=== PATIENT | female | born 1950 | race American Indian/Alaskan Native ===

== ENCOUNTER 2017-03-26 17:11 | Emergency (ER) | payer SELFPAY ==
[2017-03-26 17:58] LABS: Basophils % (Auto) 0.7 % (0.0-1.8); Eosinophils % (Auto) 3.4 % (0.0-4.3); Hematocrit 37.8 % (30.3-42.9); Hemoglobin 12.4 gm/dl (10.1-14.3); Mean Corpuscular HGB Conc 33 % (30-34); Mean Corpuscular Hemoglobin 29 pg (28-32); Mean Corpuscular Volume 88 fl (79-97); Platelet Count 180 K/mm3 (140-440); Red Blood Count 4.29 M/mm3 (3.65-5.03); Red Cell Distribution Width 14.9 % (13.2-15.2); White Blood Count 6.3 K/mm3 (4.5-11.0)
[2017-03-26 18:00] LABS: Anion Gap 18 mmol/L; BUN/Creatinine Ratio 22.22; Blood Urea Nitrogen 20 mg/dL (7-17); Calcium 8.9 mg/dL (8.4-10.2); Carbon Dioxide 25 mmol/L (22-30); Glucose 91 mg/dL (65-100); Potassium 4.1 mmol/L (3.6-5.0); Sodium 140 mmol/L (137-145)
[2017-03-26] MEDS ORDERED: TORADOL IM ONE (20:31)
[2017-03-26] MEDS ORDERED: NORVASC PO ONE (20:31)
[2017-03-26] MEDS ORDERED: ULTRAM PO ONE (20:31)
--- NOTE | 2017-03-26 21:36 | Emergency Department Report ---
ED Extremity Problem HPI - General Chief complaint: Chest Pain Stated complaint: SHOULDER AND BACK PAIN Time Seen by Provider: 03/26/17 19:44 Source: patient Mode of arrival: Ambulatory Limitations: Language Barrier - History of Present Illness Initial comments: 67-year-old female with a past medical history of hypertension presents to the hospital complaining of bilateral shoulder pain 6 months and chest pain earlier today. Patient speaks Creole and her daughter is translating. Last 6 months she has had bilateral shoulder pain right greater than left. Pain is worse with palpation and movement extends up to her neck and upper back/ trapezius area. No injury reported. No fever. Patient does not have a primary care doctor has not seen anyone about this pain. Patient also mentioned to triage nurse that she has some chest pain earlier today. Upon me repeatedly asking about the patient's chest pain she diverts back to her r shoulder. She states that the chest pain was mild and it felt like gas and doesn't appear to be concerned about this chest pain that she had approximately 10 AM today that lasted for 2-3 minutes. No further chest pain episodes reported since. No reports of nausea, vomiting, shortness of breath or diaphoresis. Patient has been noncompliant for her blood pressure medication for at least 2-3 weeks. They do not recall the name of the medication. Severity scale (0 -10): 5 - Related Data Previous Rx's Medication Instructions Recorded Last Taken Type Ibuprofen [Motrin] 600 mg PO Q8H PRN #30 tablet 03/26/17 Unknown Rx amLODIPine [Norvasc] 10 mg PO DAILY #30 tab 03/26/17 Unknown Rx traMADol [Ultram 50 MG tab] 50 mg PO Q6HR PRN #20 tablet 03/26/17 Unknown Rx Allergies Allergy/AdvReac Type Severity Reaction Status Date / Time No Known Allergies Allergy Unverified 03/26/17 17:26 ED Review of Systems ROS: Stated complaint: SHOULDER AND BACK PAIN Other details as noted in HPI Comment: All other systems reviewed and negative Other: Constitutional: No fevers chills Eyes: No eye pain visual changes ENT: No ear pain or throat pain Neck: Denies pain Respiratory: Denies cough wheezing shortness of breath Cardiovascular: Denies palpitations, syncope GI: Denies abdominal pain, nausea, vomiting, diarrhea : Denies dysuria Musculoskeletal: As per HPI Skin: Denies rash, lesions, erythema Neurologic: Denies headache, numbness, weakness Psychiatric: Denies suicidal ideation, hallucinations ED Past Medical Hx - Past Medical History Hx Hypertension: Yes - Surgical History Past Surgical History?: No - Social History Smoking Status: Never Smoker Substance Use Type: None - Medications Home Medications: Home Medications Medication Instructions Recorded Confirmed Last Taken Type Ibuprofen [Motrin] 600 mg PO Q8H PRN #30 tablet 03/26/17 Unknown Rx amLODIPine [Norvasc] 10 mg PO DAILY #30 tab 03/26/17 Unknown Rx traMADol [Ultram 50 MG tab] 50 mg PO Q6HR PRN #20 tablet 03/26/17 Unknown Rx ED Physical Exam - General Limitations: Language Barrier - Other Other exam information: General: No limitations, patient is alert in no acute distress Head exam: Atraumatic, normocephalic Eyes exam: Normal appearance, pupils equal reactive to light, extraocular movements intact ENT: Moist mucous membrane Neck exam: Normal inspection, full range of motion, no meningismus nontender Respiratory exam: Clear to auscultation bilateral, no wheezes, rales, crackles Cardiovascular: Normal rate and rhythm, normal heart sounds Abdomen: Soft, nondistended, and nontender, with normal bowel sounds, no rebound, or guarding Extremity: Full range of motion normal inspection no deformity, no calf tenderness or deformity. Patient has tenderness to bilateral shoulders right greater than left. Full range of motion. Increased pain with external rotation. Positive tenderness along the trapezius muscle on the left and the right. Back: Normal Inspection, full range of motion, no tenderness Neurologic: Alert, oriented x3, cranial nerves intact, no motor or sensory deficit Psychiatric: normal affect, normal mood Skin: Warm, dry, intact ED Course Vital Signs 03/26/17 03/26/17 03/26/17 17:24 19:47 21:25 Temperature 98.4 F 98.0 F Pulse Rate 62 68 50 L Respiratory 18 20 Rate Blood Pressure 171/103 174/83 Blood Pressure 174/83 [Left] O2 Sat by Pulse 99 100 Oximetry 03/26/17 03/26/17 21:31 21:32 Temperature Pulse Rate Respiratory 20 20 Rate Blood Pressure Blood Pressure [Left] O2 Sat by Pulse Oximetry - Reevaluation(s) Reevaluation #1: 03/26/17 21:36 Patient treated with Norvasc, tramadol, and Toradol ED Medical Decision Making - Lab Data Result diagrams: 03/26/17 17:29 03/26/17 17:29 Lab Results 03/26/17 03/26/17 03/26/17 Range/Units 17:29 17:29 20:40 WBC 6.3 (4.5-11.0) K/mm3 RBC 4.29 (3.65-5.03) M/mm3 Hgb 12.4 (10.1-14.3) gm/dl Hct 37.8 (30.3-42.9) % MCV 88 (79-97) fl MCH 29 (28-32) pg MCHC 33 (30-34) % RDW 14.9 (13.2-15.2) % Plt Count 180 (140-440) K/mm3 Lymph % (Auto) 39.2 H (13.4-35.0) % [place] % (Auto) 10.1 H (0.0-7.3) % Eos % (Auto) 3.4 (0.0-4.3) % Baso % (Auto) 0.7 (0.0-1.8) % Lymph # 2.5 (1.2-5.4) K/mm3 [place] # 0.6 (0.0-0.8) K/mm3 Eos # 0.2 (0.0-0.4) K/mm3 Baso # 0.0 (0.0-0.1) K/mm3 Seg Neutrophils % 46.6 (40.0-70.0) % Seg Neutrophils # 2.9 (1.8-7.7) K/mm3 Sodium 140 (137-145) mmol/L Potassium 4.1 (3.6-5.0) mmol/L Chloride 101.0 (98-107) mmol/L Carbon Dioxide 25 (22-30) mmol/L Anion Gap 18 mmol/L BUN 20 H (7-17) mg/dL Creatinine 0.9 (0.7-1.2) mg/dL Estimated GFR > 60 ml/min BUN/Creatinine Ratio 22.22 % Glucose 91 (65-100) mg/dL Calcium 8.9 (8.4-10.2) mg/dL Troponin T < 0.010 < 0.010 (0.00-0.029) ng/mL - EKG Data -: EKG Interpreted by Me (sinus rhythm rate 61 first degree AV block no ST elevation or T-wave invers) - EKG Data When compared to previous EKG there are: previous EKG unavailable - Radiology Data Radiology results: report reviewed, image reviewed Chest x-ray: A right-sided aortic arch with evidence of right ventricular hypertrophy. COPD. No acute process - Medical Decision Making Patient's complaint is primarily bilateral shoulder and upper back pain and not chest pain. Chest x-ray read by radiologist. Pain improved after meds in the ED. We will prescribe Norvasc for blood pressure since patient does not know her previous blood pressure medication. Outpatient follow-up will be encouraged. - Differential Diagnosis unstable angina, SC, dissection, musculoskeletal pain, arthritis, GERD Critical Care Time: No Critical care attestation.: If time is entered above; I have spent that time in minutes in the direct care of this critically ill patient, excluding procedure time. ED Disposition Clinical Impression: Atypical chest pain, Hypertension, Noncompliance with medication regimen Shoulder pain, bilateral Qualifiers: Chronicity: chronic Qualified Code(s): M25.512 - Pain in left shoulder; M25.511 - Pain in right shoulder; G89.29 - Other chronic pain Disposition: DISCHARGED TO HOME OR SELFCARE Is pt being admited?: No Does the pt Need Aspirin: No Condition: Stable Instructions: Chest Pain (ED), Arthralgia (ED), Hypertension (ED) Additional Instructions: Take the medication as prescribed. Return if symptoms worsen. Follow-up with the doctor/clinic provided or the physician of your choice Prescriptions: amLODIPine [Norvasc] 10 mg PO DAILY #30 tab Ibuprofen [Motrin] 600 mg PO Q8H PRN #30 tablet PRN Reason: Pain traMADol [Ultram 50 MG tab] 50 mg PO Q6HR PRN #20 tablet PRN Reason: Pain Referrals: [facility] [Provider Group] - 3-5 Days (Primary care clinic) BRITTANY ZAPATA MD [Staff Physician] - 3-5 Days (Orthopedic doctors) VALENTINA DE LUNA MD [Staff Physician] - 3-5 Days (Primary care doctor) Time of Disposition: 22:03
--- NOTE | 2017-03-26 21:56 | XRay Report ---
FINAL REPORT PROCEDURE: XR CHEST ROUTINE 2V TECHNIQUE: PA and lateral chest radiographs were obtained. CPT 87546 HISTORY: cp,htn COMPARISON: No prior studies are available for comparison. FINDINGS: Heart: Cardiac apex is of right ventricular configuration.. Mediastinum/Vessels: Aortic arch and descending aorta are right-sided. Lungs/Pleural space: Lungs are hyperinflated. There are no confluent infiltrates or mass lesions. Pleural spaces are clear.. Bony thorax: No acute osseous abnormality. 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 COPD. No acute pulmonary process.
[2017-03-26 22:16] VITALS: BP 178/73
== END 2017-03-26 22:15 | disposition home or self-care (01) ==
LOC: ED 17:11
DX: R07.89 Other chest pain (principal); G89.29 Other chronic pain; M25.512 Pain in left shoulder; M25.511 Pain in right shoulder; I10 Essential (primary) hypertension
CPT/HCPCS: 36415; 71020; 80048; 84484; 85025; 93005; 93010; 96372; 99285; J1885

== ENCOUNTER 2020-01-08 17:03 | Emergency (ER) | payer SELFPAY ==
[2020-01-08 17:56] VITALS: BP 136/90
--- NOTE | 2020-01-08 17:57 | Event Note ---
ED Screening Note Date of service: 01/08/20 Time: 17:56 ED Screening Note: 69 y o female presents with abd pain with v/d x 1 week alise translater This initial assessment/diagnostic orders/clinical plan/treatment(s) is/are subject to change based on patients health status, clinical progression and re- assessment by fellow clinical providers in the ED. Further treatment and workup at subsequent clinical providers discretion. Patient/guardian urged not to elope from the ED as their condition may be serious if not clinically assessed and managed. Initial orders include:
[2020-01-08 18:37] LABS: Basophils % (Auto) 0.5 % (0.0-1.8); Eosinophils # (Auto) 0.1 K/mm3 (0.0-0.4); Hematocrit 39.6 % (30.3-42.9); Lymphocytes # (Auto) 2.3 K/mm3 (1.2-5.4); Lymphocytes % (Auto) 32.9 % (13.4-35.0); Mean Corpuscular HGB Conc 33 % (30-34); Mean Corpuscular Volume 88 fl (79-97); Monocytes # (Auto) 0.7 K/mm3 (0.0-0.8); Monocytes % (Auto) 10.5 % (0.0-7.3); Platelet Count 184 K/mm3 (140-440); Red Blood Count 4.48 M/mm3 (3.65-5.03); Red Cell Distribution Width 14.2 % (13.2-15.2)
[2020-01-08 18:56] LABS: Alanine Aminotransferase 7 units/L (7-56); Albumin 4.1 g/dL (3.9-5); BUN/Creatinine Ratio 24; Blood Urea Nitrogen 19 mg/dL (7-17); Calcium 9.8 mg/dL (8.4-10.2); Hemolysis Index 3
[2020-01-08] MEDS ORDERED: FAMOTIDINE 20 MG/2 ML INJ IV ONE (21:54)
[2020-01-08] MEDS ORDERED: ONDANSETRON 4 MG/2 ML INJ IV ONE (21:55)
[2020-01-08] MEDS ORDERED: MORPHINE 4 MG/1 ML INJ IV ONE (21:55)
--- NOTE | 2020-01-08 23:26 | Cat Scan Report ---
CT abdomen pelvis w con INDICATION / CLINICAL INFORMATION: MAIN: Pain 100CC OF OMNIPAQUE 350 BOLUS GIVEN . TECHNIQUE: Axial CT imaging of abdomen and pelvis was obtained with IV contrast. Coronal and sagittal reformatte d imaging obtained and reviewed. All CT scans at this location are performed using CT dose reduction for ALARA by means of automated exposure control. COMPARISON: None available. FINDINGS: CT abdomen with contrast demonstrates bilateral dilatation. There is mild to moderate dilatation of t he common bile duct, pancreatic duct, and there is also intrahepatic biliary dilatation. No obvious g allbladder pathology noted. I do not see a mass to account for the abnormal biliary dilatation. The liver is otherwise normal. Spleen, kidneys, and adrenal glands are unremarkable. There is an inci dental 2.8 cm simple cyst in the left kidney. CT pelvis with contrast does not demonstrate any focal mass or free fluid. Moderate amount of stool s een throughout the colon. No impaction present. There is mild ectasia of the abdominal aorta without aneurysm. Moderate amount of calcific plaque is present throughout the abdominal aorta and common iliac arteries. Visualized lung bases are grossly clear. No significant osseous abnormality other than mild degenerative disc disease. IMPRESSION: 1. There is abnormal biliary dilatation including pancreatic duct, common bile duct, and intrahepatic biliary dilatation. Source of the biliary dilatation is not identified. Further evaluation with MRCP or ERCP could be performed if clinically warranted.. 2. Moderate amount of stool noted throughout the colon. Signer Name: Anusha Hdez MD Signed: 01/08/2020 11:22 PM Workstation Name: [id number]
[2020-01-08] MEDS ORDERED: SODIUM CHLORIDE 0.9% 1000 ML 1,000 ML IV ONE (23:40)
--- NOTE | 2020-01-09 02:08 | Ultrasound Report ---
ULTRASOUND ABDOMEN, LIMITED (RIGHT UPPER QUADRANT) INDICATION / CLINICAL INFORMATION: abdominal pain: r/o cholecystitis. COMPARISON: CT abdomen/pelvis, 01/08/2020 FINDINGS: PANCREAS: Visualized portion shows no significant abnormality. Pancreatic duct on CT scan is dilated 6 mm. This was not identified sonographically. LIVER: No significant abnormality. GALLBLADDER: No significant abnormality. No gallstones or gallbladder wall thickening. BILE DUCTS: No significant abnormality. Common bile duct measures 5 mm. There is intrahepatic biliary dilatation on CT scan that is not appreciated sonographically. FREE FLUID: None. ADDITIONAL FINDINGS: None. IMPRESSION: 1. Negative ultrasound of the right upper quadrant. No evidence of cholecystitis. 2. Despite the absence of biliary dilatation identified sonographically, there is abnormal biliary di latation on CT scan. The appearance on CT scan is still worrisome for an obstructing lesion in the di stal common bile duct or region of the ampulla. Signer Name: Anusha Hdez MD Signed: 01/09/2020 2:03 AM Workstation Name: [id number]
[2020-01-09 02:25] LABS: Bilirubin,Urine NEG (Negative); Blood,Urine NEG (Negative); Color,Urine Yellow (Yellow); Protein,Urine <15 mg/dL mg/dL (Negative); Urobilinogen,Urine < 2.0 mg/dL (<2.0)
--- NOTE | 2020-01-09 02:50 | Emergency Department Report ---
ED Abdominal Pain HPI - General Chief Complaint: Abdominal Pain Stated Complaint: STOMACH PAIN, HEADACHE Source: patient Mode of arrival: Ambulatory Limitations: No Limitations - History of Present Illness Initial Comments: Patient is a 69-year-old -Prydeinig female with no past medical history who presented to the ED with persistent intermittent abdominal pain with nausea and vomiting for the last 2 weeks worse in the last 2 days. Patient was treated for the same at [facility] about 2 weeks ago for the same and discharged home on laxatives after being diagnosed with constipation. Patient states that his symptoms got worse in the last 2 days despite having normal bowel movement. Patient denies dizziness, chest pain, shortness of breath, diarrhea, dysuria, urinary frequency and urgency, hematochezia, hematemesis, fever, chills, cough, sore throat or headache. MD Complaint: abdominal pain, other (nausea and vomiting) -: Sudden, week(s) (2) Location: periumbilical Radiation: none Migration to: no migration Severity scale (0 -10): 5 Quality: cramping, aching Consistency: intermittent Improves With: nothing Worsens With: nothing Associated Symptoms: denies other symptoms, nausea, vomiting, constipation, anorexia. denies: diarrhea, fever, chills, dysuria, hematemesis, hematochezia, melena, hematuria, syncope Treatments Prior to Arrival: other (laxatives) - Related Data Previous Rx's Medication Instructions Recorded Last Taken Type Ibuprofen [Motrin] 600 mg PO Q8H PRN #30 tablet 03/26/17 Unknown Rx amLODIPine [Norvasc] 10 mg PO DAILY #30 tab 03/26/17 Unknown Rx traMADoL [Ultram 50 MG tab] 50 mg PO Q6HR PRN #20 tablet 03/26/17 Unknown Rx Dicyclomine [Bentyl] 20 mg PO Q6H PRN #30 tablet 01/09/20 Unknown Rx Docusate Sodium [Colace CAP] 100 mg PO Q12H PRN #60 capsule 01/09/20 Unknown Rx Famotidine [Pepcid] 20 mg PO Q12H #60 tablet 01/09/20 Unknown Rx Ondansetron [Zofran Odt] 4 mg PO Q6HR PRN #20 tab.rapdis 01/09/20 Unknown Rx Allergies Allergy/AdvReac Type Severity Reaction Status Date / Time No Known Allergies Allergy Unverified 03/26/17 17:26 ED Review of Systems ROS: Stated complaint: STOMACH PAIN, HEADACHE Other details as noted in HPI Constitutional: denies: chills, fever Eyes: denies: eye pain, eye discharge, vision change ENT: denies: ear pain, throat pain Respiratory: denies: cough, shortness of breath, wheezing Cardiovascular: denies: chest pain, palpitations Endocrine: no symptoms reported Gastrointestinal: abdominal pain, nausea, vomiting. denies: diarrhea Genitourinary: denies: urgency, dysuria, discharge Musculoskeletal: denies: back pain, joint swelling, arthralgia Skin: denies: rash, lesions Neurological: denies: headache, weakness, paresthesias Psychiatric: denies: anxiety, depression Hematological/Lymphatic: denies: easy bleeding, easy bruising ED Past Medical Hx - Past Medical History Previous Medical History?: Yes Hx Hypertension: Yes - Surgical History Past Surgical History?: No - Social History Smoking Status: Never Smoker Substance Use Type: None - Medications Home Medications: Home Medications Medication Instructions Recorded Confirmed Last Taken Type Ibuprofen [Motrin] 600 mg PO Q8H PRN #30 tablet 03/26/17 Unknown Rx amLODIPine [Norvasc] 10 mg PO DAILY #30 tab 03/26/17 Unknown Rx traMADoL [Ultram 50 MG tab] 50 mg PO Q6HR PRN #20 tablet 03/26/17 Unknown Rx Dicyclomine [Bentyl] 20 mg PO Q6H PRN #30 tablet 01/09/20 Unknown Rx Docusate Sodium [Colace CAP] 100 mg PO Q12H PRN #60 capsule 01/09/20 Unknown Rx Famotidine [Pepcid] 20 mg PO Q12H #60 tablet 01/09/20 Unknown Rx Ondansetron [Zofran Odt] 4 mg PO Q6HR PRN #20 tab.rapdis 01/09/20 Unknown Rx ED Physical Exam - General Limitations: No Limitations General appearance: alert, in no apparent distress - Head Head exam: Present: atraumatic, normocephalic, normal inspection - Eye Eye exam: Present: normal appearance, PERRL, EOMI Pupils: Present: normal accommodation - ENT ENT exam: Present: normal exam, normal orophraynx, mucous membranes moist, TM's normal bilaterally, normal external ear exam - Neck Neck exam: Present: normal inspection, full ROM - Respiratory Respiratory exam: Present: normal lung sounds bilaterally. Absent: respiratory distress, wheezes, rales, rhonchi, chest wall tenderness, accessory muscle use, decreased breath sounds - Cardiovascular Cardiovascular Exam: Present: regular rate, normal rhythm, normal heart sounds. Absent: systolic murmur, diastolic murmur, rubs, gallop - GI/Abdominal GI/Abdominal exam: Present: soft, tenderness (Palpable mild periumbilical tenderness, no guarding or rebound), normal bowel sounds. Absent: guarding, rebound, hypoactive bowel sounds - Extremities Exam Extremities exam: Present: normal inspection, full ROM, normal capillary refill - Back Exam Back exam: Present: normal inspection, full ROM. Absent: tenderness, CVA tenderness (R), muscle spasm, paraspinal tenderness, vertebral tenderness - Neurological Exam Neurological exam: Present: alert, oriented X3, CN II-XII intact, normal gait, reflexes normal - Psychiatric Psychiatric exam: Present: normal affect, normal mood - Skin Skin exam: Present: warm, dry, intact, normal color. Absent: rash ED Course Vital Signs 01/08/20 17:55 Temperature 98.8 F Pulse Rate 80 Respiratory 18 Rate Blood Pressure 136/90 O2 Sat by Pulse 95 Oximetry ED Medical Decision Making - Lab Data Result diagrams: 01/08/20 18:10 01/08/20 18:10 - Radiology Data Radiology results: report reviewed, image reviewed Findings [facility] [address] [place] [address] Ultrasound Report Signed Patient: HALI NASH MR#: [id number] : 1950 Acct:[id number] Age/Sex: 69 / F ADM Date: 01/08/20 Loc: ED Attending Dr: Ordering Physician: YARITZA RUIZ Date of Service: 01/08/20 Procedure(s): US abdomen limited Accession Number(s): [id number] cc: YARITZA RUIZ ULTRASOUND ABDOMEN, LIMITED (RIGHT UPPER QUADRANT) INDICATION / CLINICAL INFORMATION: abdominal pain: r/o cholecystitis. COMPARISON: CT abdomen/pelvis, 01/08/2020 FINDINGS: PANCREAS: Visualized portion shows no significant abnormality. Pancreatic duct on CT scan is dilated 6 mm. This was not identified sonographically. LIVER: No significant abnormality. GALLBLADDER: No significant abnormality. No gallstones or gallbladder wall thickening. BILE DUCTS: No significant abnormality. Common bile duct measures 5 mm. There is intrahepatic biliary dilatation on CT scan that is not appreciated sonographically. FREE FLUID: None. ADDITIONAL FINDINGS: None. IMPRESSION: 1. Negative ultrasound of the right upper quadrant. No evidence of cholecystitis. 2. Despite the absence of biliary dilatation identified sonographically, there is abnormal biliary dilatation on CT scan. The appearance on CT scan is still worrisome for an obstructing lesion in the distal common bile duct or region of the ampulla. Signer Name: Anusha Hdez MD Signed: 01/09/2020 2:03 AM Workstation Name: [id number] Transcribed By: JR Dictated By: Anusha Hdez MD Electronically Authenticated By: Anusha Hdez MD Signed Date/Time: 01/09/20202 DD/ 6 TD/TT: [place] [address] Cat Scan Report Signed with Addenda Patient: HALI NASH MR#: [id number] : 1950 Acct:[id number] Age/Sex: 69 / F ADM Date: 01/08/20 Loc: ED Attending Dr: Ordering Physician: YARITZA RUIZ Date of Service: 01/08/20 Procedure(s): CT abdomen pelvis w con Accession Number(s): [id number] cc: YARITZA RUIZ ADDENDUM Incidentally noted is a right-sided descending thoracic aorta. Also, there is a voice dictation error in the paragraph entitled "FINDINGS". The first sentence should read, "CT abdomen with contrast demonstrates biliary dilatation." Signer Name: Anusha Hdez MD Signed: 01/09/2020 2:06 AM Workstation Name: [id number] Addendum Transcribed By: Addendum Dictated By: Anusha Hdez MD Addendum Electronically Authenticated By: Anusha Hdez MD Addendum Signed Date/Time: 01/09/20205 DD/ /19/204 TD/TT: / CT abdomen pelvis w con INDICATION / CLINICAL INFORMATION: MAIN: Pain 100CC OF OMNIPAQUE 350 BOLUS GIVEN . TECHNIQUE: Axial CT imaging of abdomen and pelvis was obtained with IV contrast. Coronal and sagittal reformatted imaging obtained and reviewed. All CT scans at this location are performed using CT dose reduction for ALARA by means of automated exposure control. COMPARISON: None available. FINDINGS: CT abdomen with contrast demonstrates bilateral dilatation. There is mild to moderate dilatation of the common bile duct, pancreatic duct, and there is also intrahepatic biliary dilatation. No obvious gallbladder pathology noted. I do not see a mass to account for the abnormal biliary dilatation. The liver is otherwise normal. Spleen, kidneys, and adrenal glands are unremarkable. There is an incidental 2.8 cm simple cyst in the left kidney. CT pelvis with contrast does not demonstrate any focal mass or free fluid. Moderate amount of stool seen throughout the colon. No impaction present. There is mild ectasia of the abdominal aorta without aneurysm. Moderate amount of calcific plaque is present throughout the abdominal aorta and common iliac arteries. Visualized lung bases are grossly clear. No significant osseous abnormality other than mild degenerative disc disease. IMPRESSION: 1. There is abnormal biliary dilatation including pancreatic duct, common bile duct, and intrahepatic biliary dilatation. Source of the biliary dilatation is not identified. Further evaluation with MRCP or ERCP could be performed if clinically warranted.. 2. Moderate amount of stool noted throughout the colon. Signer Name: Anusha Hdez MD Signed: 01/08/2020 11:22 PM Workstation Name: [id number] Transcribed By: Dictated By: Anusha Hdez MD Electronically Authenticated By: Anusha Hdez MD Signed Date/Time: 01/08/202321 DD/ 16 TD/TT: - Medical Decision Making This is a 69-year-old -Prydeinig female with no past medical history who presented to the ED with persistent intermittent abdominal pain with nausea and vomiting for the last 2 weeks worse in the last 2 days. In the ED, patient is alert and oriented x3 and is not in any distress with normal vital signs. Patient was treated for pain and also given antacids and antiemetics, also given normal saline 1 L IV bolus. Lab test results were reviewed and are quite unremarkable except for lipase level of 109 and BUN of 19. The rest of the lab test results including urinalysis were nonactionable. Abdomen pelvis CT scan with contrast shows an abnormal biliary dilatation including pancreatic duct, common bile duct, and intrahepatic biliary dilatation. Source of the biliary dilatation is not identified. Further evaluation with MRCP or ERCP could be performed if clinically warranted. There is also moderate amount of stool noted throughout the colon. Gallbladder ultrasound shows negative ultrasound of the right upper quadrant. No evidence of cholecystitis. Despite the absence of biliary dilatation identified sonographically, there is abnormal biliary dilatation on CT scan. The appearance on CT scan is still worrisome for an obstructing lesion in the distal common bile duct or region of the ampulla. On reevaluation, patient's pain is well controlled with medications. Patient was discharged home on antiemetics, pain medications and antacids as well as stool softeners. Patient was referred to the [facility], Dr. Loco Barboza for follow-up and possible MRCP or ERCP procedure to characterize the etiology of the biliary dilatation found in the abdomen pelvis CT scan with contrast. The family was advised to contact Dr. Loco Barboza's office first thing in the morning to schedule a follow-up appointment. Family was was advised of the patient return to the ED immediately if symptoms get worse. - Differential Diagnosis Pancreatitis; Cholecystitis; GERD; SBO; UTI; Cholelithiasis Critical care attestation.: If time is entered above; I have spent that time in minutes in the direct care of this critically ill patient, excluding procedure time. ED Disposition Clinical Impression: Nausea and vomiting in adult Abdominal pain Qualifiers: Abdominal location: periumbilical Qualified Code(s): R10.33 - Periumbilical pain Constipation Qualifiers: Constipation type: other constipation type Qualified Code(s): K59.09 - Other constipation GERD (gastroesophageal reflux disease) Qualifiers: Esophagitis presence: without esophagitis Qualified Code(s): K21.9 - Gastro- esophageal reflux disease without esophagitis Disposition: TO HOME OR SELFCARE Is pt being admited?: No Does the pt Need Aspirin: No Condition: Stable Instructions: Abdominal Pain (ED), Constipation (ED), Acute Nausea and Vomiting (ED), Gastroesophageal Reflux Disease (ED) Additional Instructions: Maintain a clear liquid diet for 24 to 48 hours, take pain medication with food as advised, drink plenty of fluids and follow-up with the [facility] as advised. Please contact the [facility] on phone first thing this morning to schedule a follow-up appointment. Return to the ED immediately if symptoms get worse. Prescriptions: Dicyclomine [Bentyl] 20 mg PO Q6H PRN #30 tablet PRN Reason: Pain , Severe (7-10) Docusate Sodium [Colace CAP] 100 mg PO Q12H PRN #60 capsule PRN Reason: Constipation Famotidine [Pepcid] 20 mg PO Q12H #60 tablet Ondansetron [Zofran Odt] 4 mg PO Q6HR PRN #20 tab.rapdis PRN Reason: Nausea Referrals: LOCO BARBOZA MD [Staff Physician] - [facility] Time of Disposition: 02:57 Print Language: BERMUDIAN
== END 2020-01-09 03:05 | disposition home or self-care (01) ==
LOC: ED 17:03
DX: K21.9 Gastro-esophageal reflux disease without esophagitis (principal); I10 Essential (primary) hypertension; Z79.1 Long term (current) use of non-steroidal anti-inflammatories (NSAID); Z79.899 Other long term (current) drug therapy
CPT/HCPCS: 36415; 74177; 76705; 80053; 81001; 82150; 83690; 84484; 85025; 93005; 93010; 96361; 96374; 96375; 99284; J2270; J2405; J7030; Q9967